=== PATIENT | female | born 1995 | race Caucasian/White ===

== ENCOUNTER 2023-05-26 15:57 | Inpatient (IN) ==
--- NOTE | 2023-05-26 16:50 | History & Physical Report ---
Date of Service May 26, 2023 Assessment & Plan (1) History of : Plan: Emma is a 28-year-old G2, P1 currently at 37 weeks 6 days gestational age presents in early labor. Patient has a history of prior and desires repeat with tubal ligation. Consent form for the procedure were reviewed and signed. Procedural risk discussed in detail and all questions answered to the patient's satisfaction. Discussed risks of the tubal ligation including risk of failure and regret. Category 1 tracing/reactive NST noted. (2) Encounter for supervision of normal in multigravida: (3) Normal labor: History of Present Illness Primary Care Provider: NO PCP Emma is a 28-year-old G2, P1 currently at 37 weeks 6 days gestational presents for labor evaluation. Patient reports that she has had contractions about every 3 to 4 minutes that have been increasing intensity. Denies any leakage of fluid or vaginal bleeding. Reported good movement. Patient was seen last night and was noted to be 1 cm dilated 50% effaced -2 station of note patient has a prior history of a and is opting for a repeat with tubal ligation with this . OB Labs: Hemoglobin 10.1 g/dl (12.0-16.0) L 03/14/23 Hematocrit 30.4 % (37.0-47.0) L 03/14/23 Glucose 1 Hour 50 gm Load 126 mg/dl (70-130) 03/14/23 OB Optional Labs: No Data to Display Labs Reviewed: Initial OB Labs10/16/22 Blood Type & RH O positive Antibody Screen negative HCT/HGB35.8/12.4 [id number] Hep C IgG 13yrs+ Old non reactive Pap [id number] Chlamydia negative Gonorrhea negative Rubella immune RPR non reactive Urine Culture/Screen negative HBsAg non reactive HIV non reactive MCV Ultrasound01/25/23 declines aneuploidy testing, cf/sma, msafp declined at prior practice. Allergies Allergy/AdvReac Type Severity Reaction Status Date / Time No Known Allergies Allergy Verified 05/26/23 16:03 Home Medications Medication Instructions Recorded Confirmed Type ferrous sulfate 325 mg (65 mg 325 mg PO DAILY 05/25/23 05/26/23 History iron) tablet (iron) vits no.124-ferrous fum 1 tab PO DAILY 05/26/23 05/26/23 History 27 mg iron-folic acid 800 mcg tablet ( Vitamin) Patient History Medical History (Updated 05/26/23 @ 16:48 by Neville Limon MD) Migraine Surgical History (Updated 05/25/23 @ 22:15 by Rachelle Funk MD, FACOG) History of Family History (Updated 05/25/23 @ 16:56 by Ro Rees, RN) Father Diabetes Mother Crohn's disease Denies family history of Ovarian cancer Breast cancer Colorectal cancer Social History (Updated 05/25/23 @ 16:57 by Ro Rees, RN) Smoking Status: Never smoker Do You Dip or Chew Tobacco: No; Hx Alcohol Use: No Hx Substance Use: No Preferred Language: Icelandic Communication Ability: Effective Visual Impairment: No Limitations Hearing Ability: Normal 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 Beliefs That Will Affect Care: None marital status: marital status details: Ruben Ponce 31 Current Living Situation: Family Current Living Situation Comment: lives with and son current occupational status: employed current occupation: herdsman on dairy [employer] Feels Safe at Home: Yes Childhood Exposure to Second-Hand Smoke: No Diet: regular Dental Care, Regularly: No Gender Identity: Female Assistive Devices: None Physical Exam Constitutional: WD/WN, vitals as above Respiratory: normal respiratory effort; no respiratory distress and no labored breathing Psychiatric: A+Ox3, euthymic affect Genitourinary: Manual OB Exam: + cervical dilation 3 cm, + cervical effacement 70% and + station -2 OB Exam Monitor Tracing: + external FHT monitor used, + external uterine monitor used, + category I and + normal FHT variability; no early decelerations present, no late decelerations present and no variable decelerations Results & Data Vital Signs (Past 12 Hours) Vital Signs Pulse BP 05/26/23 16:33 91 H 125/84 Coding Level of Care Code None Diagnoses History of Z98.891 Encounter for supervision of normal in multigravida Z34.80 Normal labor O80; Z37.9
[2023-05-26] MEDS ORDERED: ceFAZolin 2000MG 2,000 MG/15 ML SYR IV SCH (17:00)
[2023-05-26] MEDS ORDERED: CITRIC ACID/SODIUM CITRATE 15 ML UDC PO ONE (17:00)
[2023-05-26 17:28] LABS: Hemoglobin 10.4 g/dl (12.0-16.0); Mean Corpuscular Hemoglobin 29.9 pg (25.0-34.0); Mean Corpuscular Hgb Conc 33.5 g/dL (32.0-36.0); Mean Corpuscular Volume 89.1 fL (80.0-100.0); Mean Platelet Volume 12.9 fL (9.4-12.4); Platelet Count 139 K/uL (130-400); RDW Coefficient of Variation 14.8 % (11.5-14.5); RDW Standard Deviation 47.7 fL (36.4-46.3); Red Blood Count 3.48 M/uL (4.20-5.40); White Blood Count 4.08 K/ul (4.8-10.8)
[2023-05-26] MEDS ORDERED: MoRPHine SULFATE PF 1 MG/ML 10 ML AMP/VIAL ONE (17:56)
[2023-05-26] MEDS ORDERED: ePHEDrine sulfate 50 MG/5 ML SYR ONE (18:23)
--- NOTE | 2023-05-26 18:35 | Anesthesiology Consultation ---
Date of Service May 26, 2023 Assessment & Plan Chart Review Chart Review: Acceptable Risk for Surgery Consults Requested none History Surgery Operation Date: 05/26/23 17:30 Proposed Procedures p Section in LD - Neville Limon MD Height/Weight Height: 5 ft 3 in Weight: 66.587 kg Allergies Allergy/AdvReac Type Severity Reaction Status Date / Time No Known Allergies Allergy Verified 05/26/23 16:03 Medications Home Medications Medication Instructions Recorded Confirmed Last Taken ferrous sulfate 325 mg (65 mg 325 mg PO DAILY 05/25/23 05/26/23 05/23/23 21:00 iron) tablet (iron) vits no.124-ferrous fum 1 tab PO DAILY 05/26/23 05/26/23 05/25/23 27 mg iron-folic acid 800 mcg tablet ( Vitamin) Active Medications Generic Name Dose Route Start Last Admin Trade Name Freq PRN Reason Stop Dose Admin Cefazolin Sodium 2,000 mg in 15 mls @ 3.75 mls/min 05/26/23 17:00 05/26/23 17:40 Ancef 2000mg IV 05/27/23 16:59 3.75 mls/min TODAY@1700 IVETT Administration Protocol NPO Date Last Intake of Fluids: 05/26/23 Time Last Intake of Fluids: 16:00 Date Last Intake of Solids: 05/26/23 Time Last Intake of Solids: 12:00 Past Medical History Medical History Migraine Past Family History Family History Father Diabetes Mother Crohn's disease Denies family history of Ovarian cancer Breast cancer Colorectal cancer Past Surgical History Surgical History History of Social History Smoking Status: Never smoker Do You Dip or Chew Tobacco: No Hx Alcohol Use: No Hx Substance Use: No substance use type: does not use Physical Exam Vital Signs Last Vital Signs Temp 36.5 C 05/26/23 16:06 Pulse 98 H 05/26/23 17:40 Resp 16 05/26/23 16:06 BP 125/84 05/26/23 16:33 Pulse Ox 98 05/26/23 17:40 Testing Laboratory Results 05/26/23 17:06 Blood Type O Positive 05/26/23 17:06 Antibody Screen NEGATIVE 05/26/23 17:06
[2023-05-26] MEDS ORDERED: HYDROmorphone INJ 0.5 MG/0.5 ML SYR IV PRN (18:38)
[2023-05-26] MEDS ORDERED: PROMETHAZINE HCL 12.5 MG in SODIUM CHLORIDE 0.9% 50 ML IV PRN (18:38)
[2023-05-26] MEDS ORDERED: NALOXONE HCL 0.4 MG/1 ML VIAL/CARP IV PRN (18:38)
[2023-05-26] MEDS ORDERED: ACETAMINOPHEN 1,000 MG/100 ML VIAL IV PRN (18:38)
[2023-05-26] MEDS ORDERED: MEPERIDINE HCL 25 MG/ML CARP/VIAL IV PRN (18:38)
[2023-05-26] MEDS ORDERED: NALBUPHINE HCL 5 MG in SYRINGE 0 ML IV PRN (18:38)
[2023-05-26] MEDS ORDERED: ePHEDrine sulfate 50 MG/ML AMP IV PRN (18:38)
[2023-05-26] MEDS ORDERED: ONDANSETRON INJ 2 MG/ML 2 ML VIAL IV PRN (18:38)
[2023-05-26] MEDS ORDERED: MoRPHine SULFATE PF 1 MG/ML 10 ML AMP/VIAL INT SPINAL ONE (18:38)
[2023-05-26] MEDS ORDERED: MoRPHine SULFATE 2 MG/ML CARP IV PRN (18:38)
[2023-05-26] MEDS ORDERED: diphenhydrAMINE 50 MG/ML VIAL IV PRN (18:38)
[2023-05-26] MEDS ORDERED: METOCLOPRAMIDE HCL 10 MG in SODIUM CHLORIDE 0.9% 50 ML IV PRN (18:38)
[2023-05-26] MEDS ORDERED: NALOXONE HCL 1 MG in SODIUM CHLORIDE 0.9% 1,000 ML IV PRN (18:38)
[2023-05-26] MEDS ORDERED: LACTATED RINGER'S 500 ML IV PRN (18:38)
[2023-05-26] MEDS ORDERED: NALOXONE HCL 0.08 MG in SYRINGE 1.8 ML IV PRN (18:38)
[2023-05-26] MEDS ORDERED: ONDANSETRON INJ 2 MG/ML 2 ML VIAL ONE (18:40)
[2023-05-26] MEDS ORDERED: OXYTOCIN 10 UNITS/ML VIAL ONE (18:41)
[2023-05-26] MEDS ORDERED: NO NARCOTICS OR SEDATIVES SCH (18:45)
[2023-05-26] MEDS ORDERED: SODIUM CHLORIDE 0.9% 1,000 ML IV SCH (18:45)
[2023-05-26] MEDS ORDERED: DIPHTHERIA/TETANUS/PERTUSSIS Vaccine (Tdap, Age 7+yrs) 0.5mL SYR/VL IM ONE (18:57)
[2023-05-26] MEDS ORDERED: HYDROCORTISONE ACETATE 25 MG SUPP PR PRN (18:57)
[2023-05-26] MEDS ORDERED: MAGNESIUM HYDROXIDE SUSP 30 ML UDC PO PRN (18:57)
[2023-05-26] MEDS ORDERED: SENNA 8.6 MG TAB PO PRN (18:57)
[2023-05-26] MEDS ORDERED: BENZOCAINE 20% SPRY 85 APPLN/85 GM CAN EXT PRN (18:57)
[2023-05-26] MEDS ORDERED: LACTATED RINGER'S 1,000 ML IV SCH (19:00)
--- NOTE | 2023-05-26 19:04 | Operative Report ---
PG Post Operative Report Pre & Post Diagnosis Operation Date: 05/26/23 17:30 Pre-Op Diagnosis: Labor. Prior C/section Post-Op Diagnosis: Labor. Prior C/section I identified the patient and participated in the time-out.: Yes Procedure Operation Date: 05/26/23 17:30 Actual Procedures Low transverse p Section in LD with delivery of live male child at 1820 - Neville Limon MD s Post Tubal Ligation Labor & Deliv - Neville Limon MD Surgeon Neville Limon MD Manager Metrology Nursing staff Estimated Blood Loss 500 Findings Consistent with Post-Op Diagnosis Specimens Fallopian tubes Description of Procedure The patient was taken to the operating room after consents were ensured. Upon presentation, she was properly identified. Spinal anesthesia was obtained without difficulty. The patient was then prepped and draped in normal sterile fashion. Preprocedural timeout was performed. A Pfannenstiel incision was then made with a knife at the prior location. This was carried down to underlying fascia with the Bovie. The fascia was nicked at the midline with a knife and extended laterally with pickups and Smith scissors. The superior aspect of the fascia was grasped with Kochers x2, elevated off the underlying rectus muscles with blunt dissection and Smith scissors. Inferior aspect of the fascia was grasped with Kochers x2, elevated off the underlying rectus muscles using blunt dissection. The midline was then entered bluntly, placed on stretch to provide adequate room for delivery. A low transverse uterine incision was then made with a knife. The uterine cavity and amniotic cavity entered bluntly, placed on stretch to provide adequate room for delivery. Baby was noted to be in cephalic presentation and the head was delivered without difficulty. Body and shoulders quickly followed. was noted to be vigorous soon after delivery and 30 second delayed cord clamping was initiated. Cord was double clamped and cut and taken of the awaiting nursery staff for evaluation. Cord blood was obtained. Attention was then turned to delivery of the placenta, which was delivered intact, 3-vessel cord, with gentle cord traction and uterine massage. The uterus was then exteriorized, wrapped in a wet lap and several passes were made, removing any remaining membranes with a dry lap. The hysterotomy was then reapproximated with 0 Vicryl continuous running locked stitch. The hysterotomy was then reinspected and hemostasis was noted. The tubal ligation portion of the procedure was then initiated. The left fallopian tube was then identified serially cauterized and dissected from the mesosalpinx. The right fallopian tube was identified serially cauterized and dissected from the mesosalpinx. Care was taken to remove the entirety of the fallopian tube including fimbria. The uterus was inspected and noted to be hemostatic. The uterus was then returned to the maternal abdomen. The muscles, subcutaneous and fascial layers were inspected to be hemostatic.The facia was reapproximated with 0 Vicryl in continuous stitch. The subcutaneous layers were reapproximated with 2-0 plain and continuous running stitch in 2 layers. The skin was reapproximated with 3-0 Vicryl with a subcuticular stitch. Needle, sponge, and instrument counts were correct at the completion of the case. Both mother and stable in the immediate post-delivery period I attest to the content of the Intraoperative Record and any orders documented therein. Any exceptions are noted below. OB Procedure charges OB Charges [id number] Add on Tubal for C/S
[2023-05-26] MEDS: KETOROLAC 30 MG/ML VIAL IV PRN (19:59)
[2023-05-26] MEDS: OXYTOCIN/LR 1,002 ML IV SCH (19:59)
[2023-05-26] MEDS: DOCUSATE SODIUM 100 MG CAP PO SCH (21:05)
[2023-05-26] MEDS: SIMETHICONE 80 MG CHEW PO SCH (21:05)
--- NOTE | 2023-05-26 21:56 | Anesthesiology Progress Note ---
Date of Service May 26, 2023 Anesthesia Post Procedure Vital Signs Vital Signs: Temp Pulse Resp BP Pulse Ox 05/26/23 21:09 81 98 05/26/23 21:04 73 97 05/26/23 21:00 18 05/26/23 21:00 74 111/71 05/26/23 20:59 75 97 05/26/23 20:54 75 97 05/26/23 20:50 74 121/80 05/26/23 20:49 74 99 05/26/23 20:44 73 98 05/26/23 20:40 71 116/74 05/26/23 20:39 72 98 05/26/23 20:34 81 98 05/26/23 20:30 18 05/26/23 20:30 71 117/74 05/26/23 20:29 77 97 05/26/23 20:24 75 97 05/26/23 20:20 69 117/76 05/26/23 20:19 77 96 05/26/23 20:14 78 97 05/26/23 20:10 69 121/81 05/26/23 20:09 72 97 05/26/23 20:04 75 97 05/26/23 20:01 80 94 05/26/23 20:00 18 05/26/23 20:00 18 05/26/23 20:00 73 119/78 05/26/23 19:59 78 98 05/26/23 19:54 75 97 05/26/23 19:50 18 05/26/23 19:50 75 118/77 05/26/23 19:49 76 97 05/26/23 19:47 82 94 05/26/23 19:44 68 97 05/26/23 19:40 18 05/26/23 19:40 72 114/71 05/26/23 19:39 84 96 05/26/23 19:34 101 H 99 05/26/23 19:30 18 05/26/23 19:30 77 114/76 05/26/23 19:29 81 97 05/26/23 19:24 86 96 05/26/23 19:21 93 H 111/75 05/26/23 19:20 18 05/26/23 19:20 91 H 94 05/26/23 19:19 84 98 05/26/23 19:14 78 98 05/26/23 19:12 75 93 05/26/23 19:11 72 117/66 05/26/23 19:10 18 05/26/23 19:09 77 96 05/26/23 19:04 80 98 05/26/23 19:00 36.4 C L 18 05/26/23 19:00 75 133/71 05/26/23 17:40 98 H 98 05/26/23 17:35 92 H 97 05/26/23 17:30 84 97 05/26/23 17:25 93 H 99 05/26/23 17:20 93 H 97 05/26/23 17:15 95 H 97 05/26/23 17:10 96 H 98 05/26/23 17:05 95 H 98 05/26/23 17:00 94 H 99 05/26/23 16:55 87 97 05/26/23 16:50 89 97 05/26/23 16:45 91 H 97 05/26/23 16:40 91 H 97 05/26/23 16:33 91 H 125/84 05/26/23 16:06 36.5 C 16 Pain Intensity Bilateral Lower Abdomen: Pain Intensity: 7 Transfer of Care Handoff Completed per policy Notes Mental Status: alert / awake / arousable Patient Amnestic to Procedure: Yes Nausea / Vomiting: adequately controlled Pain: adequately controlled Airway Patency, RR, SpO2: stable & adequate BP & HR: stable & adequate Hydration State: stable & adequate Neuraxial Anesthesia: was administered and sensory block is resolving Anesthetic Complications: no major complications apparent and Pt Satisfied with anesthetic care
[2023-05-27] MEDS: OXYTOCIN/LR 1,002 ML IV SCH (04:32)
[2023-05-27] MEDS ORDERED: ceFAZolin 2000MG 2,000 MG/15 ML SYR IV SCH (06:00)
[2023-05-27] MEDS: KETOROLAC 30 MG/ML VIAL IV PRN (07:41)
[2023-05-27 08:07] LABS: Basophils # (auto) 0.01 K/uL (0.00-0.20); Basophils % (auto) 0.1 %; Eosinophils # (auto) 0.03 K/uL (0.00-0.50); Eosinophils % (auto) 0.4 %; Hematocrit (blood only) 30.3 % (37.0-47.0); Hemoglobin 10.1 g/dl (12.0-16.0); Immature Granulocytes # (auto) 0.03 K/uL (0.01-0.20); Immature Granulocytes % (auto) 0.4 %; Lymphocytes # (auto) 0.43 K/uL (1.20-3.40); Lymphocytes % (auto) 6.1 %; Mean Corpuscular Hemoglobin 29.8 pg (25.0-34.0); Mean Corpuscular Hgb Conc 33.3 g/dL (32.0-36.0); Mean Corpuscular Volume 89.4 fL (80.0-100.0); Mean Platelet Volume 12.5 fL (9.4-12.4); Monocytes # (auto) 0.38 K/uL (0.11-0.59); Monocytes % (auto) 5.4 %; Neutrophils # (auto) 6.14 K/uL (1.40-6.50); Neutrophils % (auto) 87.6 %; Platelet Count 109 K/uL (130-400); Red Blood Count 3.39 M/uL (4.20-5.40); White Blood Count 7.02 K/ul (4.8-10.8)
--- NOTE | 2023-05-27 09:17 | Obstetrical Progress Note ---
Date of Service May 27, 2023 Assessment & Plan (1) Encounter for care and examination after delivery: Day 1 status post repeat . Patient doing well. Routine care. Subjective Ambulation: ambulating normally Voiding: no voiding problems Passing Gas:: Yes Diet Tolerance:: regular diet Lochia:: Moderate Feeding Type:: breast feeding Physical Exam Constitutional WD/WN, vitals as above Respiratory normal respiratory effort; no respiratory distress and no labored breathing Gastrointestinal (Abdomen) Inspection/Auscultation: abdomen normal to inspection; abdomen not distended Percussion/Palpation: abdomen soft; abdomen nontender, no guarding and abdomen not rigid Genitourinary OB Exam Abdomen: + fundal height Fundus: + firm and + relation to umbilicus (Below); not tender or not boggy Incision clean dry and intact Results & Data Vital Signs (Past 12 Hours) Vital Signs Temp Pulse Pulse Resp BP Pulse Ox O2 Del Method 05/27/23 07:48 36.4 C L 70 16 114/75 97 Room Air 05/27/23 05:01 18 96 05/27/23 04:30 18 98 05/27/23 03:55 36.7 C 66 18 111/69 98 Room Air 05/27/23 03:30 18 96 05/27/23 02:30 16 97 05/27/23 01:38 18 96 05/27/23 00:15 16 96 05/26/23 23:10 18 97 05/26/23 23:00 Room Air 05/26/23 23:00 36.7 C 88 18 115/66 97 Room Air 05/26/23 22:10 18 97
[2023-05-27] MEDS: PRENATAL VITAMIN 1 TAB PO SCH (09:33)
[2023-05-27] MEDS: FERROUS SULFATE 325 MG TAB PO SCH (09:33)
[2023-05-27] MEDS: SIMETHICONE 80 MG CHEW PO SCH ×4 (09:33→20:17)
[2023-05-27] MEDS: DOCUSATE SODIUM 100 MG CAP PO SCH ×2 (09:33→20:17)
[2023-05-27] MEDS ORDERED: DC INTRASPINAL MORPHINE SCH (12:38)
[2023-05-27] MEDS ORDERED: KETOROLAC 30 MG/ML VIAL IV PRN (12:39)
[2023-05-27] MEDS ORDERED: diphenhydrAMINE Capsule 25 MG CAP PO PRN (12:39)
[2023-05-27] MEDS ORDERED: ONDANSETRON INJ 2 MG/ML 2 ML VIAL IV PRN (12:39)
[2023-05-27] MEDS ORDERED: PROMETHAZINE HCL 25 MG in SODIUM CHLORIDE 0.9% 50 ML IV PRN (12:39)
[2023-05-27] MEDS ORDERED: diphenhydrAMINE 50 MG/ML VIAL IV PRN (12:39)
[2023-05-27] MEDS: IBUPROFEN 600 MG TAB PO PRN ×2 (14:19→18:34)
[2023-05-27] MEDS: oxyCODONE/ACETAMINOPHEN 5mg/325mg TAB PO PRN (18:33)
[2023-05-27] MEDS ORDERED: bisacodyL 5 MG TABEC PO SCH (20:00)
[2023-05-28] MEDS: IBUPROFEN 600 MG TAB PO PRN ×2 (06:11→11:59)
[2023-05-28] MEDS: oxyCODONE/ACETAMINOPHEN 5mg/325mg TAB PO PRN (06:12)
[2023-05-28 06:37] LABS: Hematocrit (blood only) 31.1 % (37.0-47.0); Hemoglobin 10.3 g/dl (12.0-16.0)
--- NOTE | 2023-05-28 07:01 | Obstetrical Progress Note ---
Date of Service May 28, 2023 Assessment & Plan (1) Encounter for care and examination after delivery: Plan Doing well Desires dc late today or tomorrow Admission and Anticipated Discharge Date Admission Date: May 26, 2023 Supervising Physician Co-Signing Physician Notes Patient seen with resident and agree with the above findings and plan. Stable for discharge if preferred Subjective 28 yo post day 2 s/p Ambulation: ambulating normally Voiding: no voiding problems Passing Gas:: Yes Diet Tolerance:: regular diet Lochia:: Small Feeding Type:: breast feeding Current Pain Level: minimal Resting comfortably this AM in NAD. Denies DAVIS, CP, SOB, N/V/D, LE pain/swelling. Review of Systems Review of Systems: reviewed, per HPI Physical Exam Physical Exam: General: patient resting comfortably, NAD, non-toxic in appearance, AA&O x 4, answers questions appropriately. Skin: warm, dry, intact HEENT: NC/AT, anicteric sclera, conjunctiva without injection, moist mucus membranes. Heart: +S1/S2, regular, no m/r/g Lungs: equal air entry bilaterally, no rales/rhonchi/wheezes Abd: +BS, soft, NT/ND, uterine fundus firm at umbilicus, caesarean incision C/D/I. Ext: warm, no clubbing/cyanosis or edema, Cesia's neg. Neuro: nonfocal, patient AA&O x 4, speech intact, no facial droop, moving all extremities on command. Results & Data Vital Signs (Past 12 Hours) Vital Signs Temp Pulse Resp BP Pulse Ox O2 Del Method 05/27/23 23:45 36.7 C 67 16 109/69 98 Room Air 05/27/23 20:00 Room Air 05/27/23 20:00 36.8 C 80 16 119/77 97 Room Air Laboratory Results 05/28/23 05/27/23 Range/Units 06:09 07:26 WBC 7.02 (4.8-10.8) K/ul RBC 3.39 L (4.20-5.40) M/uL Hgb 10.3 L 10.1 L (12.0-16.0) g/dl Hct 31.1 L 30.3 L (37.0-47.0) % MCV 89.4 (80.0-100.0) fL MCH 29.8 (25.0-34.0) pg MCHC 33.3 (32.0-36.0) g/dL RDW Std Deviation 49.0 H (36.4-46.3) fL RDW Coeff of [place] 15.0 H (11.5-14.5) % Plt Count 109 L (130-400) K/uL MPV 12.5 H (9.4-12.4) fL Immature Gran % (Auto) 0.4 % Neut % (Auto) 87.6 % Lymph % (Auto) 6.1 % Wharton % (Auto) 5.4 % Eos % (Auto) 0.4 % Baso % (Auto) 0.1 % Neut # (Auto) 6.14 (1.40-6.50) K/uL Lymph # (Auto) 0.43 L (1.20-3.40) K/uL [place]arton # (Auto) 0.38 (0.11-0.59) K/uL Eos # (Auto) 0.03 (0.00-0.50) K/uL Baso # (Auto) 0.01 (0.00-0.20) K/uL Immature Gran # (Auto) 0.03 (0.01-0.20) K/uL Resident Activity Tracking Resident Involvement: Resident Care Provided Care Provided: Adult [facility] Medicine
[2023-05-28] MEDS: PRENATAL VITAMIN 1 TAB PO SCH (08:37)
[2023-05-28] MEDS: FERROUS SULFATE 325 MG TAB PO SCH (08:37)
[2023-05-28] MEDS: DOCUSATE SODIUM 100 MG CAP PO SCH (08:37)
[2023-05-28] MEDS: SIMETHICONE 80 MG CHEW PO SCH ×2 (08:37→11:59)
[2023-05-28] MEDS ORDERED: bisacodyL 10 MG SUPP PR PRN (18:57)
== END 2023-05-28 15:15 | disposition home or self-care (01) | DRG 785 ==
LOC: OPB 15:57 → 4S1 16:02 → 4E1 21:43
PROC: M.PPTLD (2023-05-26 17:30)